=== PATIENT | male | born 1985 ===

== ENCOUNTER 2019-07-05 17:58 | Emergency (ER) | payer BC, OTHER ==
--- NOTE | 2019-07-05 18:58 | UC ---
Cardiac HPI - HPI Summary HPI Summary: The patient is a 34-year-old male with a 2 week history of substernal chest pressure. It can last 2 up to a few hours. He has been feeling anxious and recently lost his job. Today he felt like he may pass out. He has been on apparently O diet and has lost 10-15 pounds in the past month. He states he has not eaten much today. He denies any abdominal pain. He denies any nausea vomiting or diarrhea. He denies any diaphoresis. - History of Current Complaint Chief Complaint: UCChestPain Stated Complaint: CHEST PAIN Time Seen by Provider: 07/05/19 18:50 Hx Obtained From: Patient Onset/Duration: Gradual Onset, Lasting Weeks Timing: Intermittent Episodes Lasting: - hours Initial Severity: Mild Current Severity: Mild Pain Intensity: 2 Chest Pain Location: Mid Sternal Character: Pressure/Squeezing Aggravating Factor(s): Nothing Alleviating Factor(s): Spontaneous Resolution Associated Signs & Symptoms: Positive: Chest Pain, Anxiety, Recent Stress, Palpitations. Negative: Vision Changes, Headaches, Numbness, Tingling, Weakness , Dizziness, SOB, Swelling, Syncope, Fever, Diaphoresis, Nausea/Vomiting, Cough , Hemoptysis, Back Pain - Allergy/Home Medications Allergies/Adverse Reactions: Allergies Allergy/AdvReac Type Severity Reaction Status Date / Time No Known Allergies Allergy Verified 07/05/19 18:10 PMH/Surg Hx/FS Hx/Imm Hx Previously Healthy: Yes - Surgical History Surgery Procedure, Year, and Place: t&A - Family History Known Family History: Positive: Hypertension, Non-Contributory - Social History Alcohol Use: Weekly Substance Use Type: None Smoking Status (MU): Never Smoked Tobacco Review of Systems All Other Systems Reviewed And Are Negative: Yes Constitutional: Positive: Negative Skin: Positive: Negative Eyes: Positive: Negative ENT: Positive: Negative Respiratory: Positive: Negative Cardiovascular: Positive: Palpitations, Chest Pain Gastrointestinal: Positive: Negative Genitourinary: Positive: Negative Motor: Positive: Negative Neurovascular: Positive: Negative Musculoskeletal: Positive: Negative Neurological: Positive: Negative Psychological: Positive: Negative Physical Exam Triage Information Reviewed: Yes Appearance: Well-Appearing, No Pain Distress, Well-Nourished Vital Signs: Initial Vital Signs Temp 98.9 F 07/05/19 18:12 Pulse 84 07/05/19 18:12 Resp 20 11/04/19 18:12 BP 154/83 07/05/19 18:12 Pulse Ox 100 07/05/19 18:12 Vital Signs Reviewed: Yes Eyes: Positive: Conjunctiva Clear ENT: Positive: Hearing grossly normal, TMs normal, Uvula midline. Negative: Nasal congestion, Nasal drainage, Tonsillar swelling, Tonsillar exudate, Trismus , Muffled voice, Dental tenderness, Sinus tenderness Dental Exam: Normal Neck: Positive: Supple, Nontender, No Lymphadenopathy Respiratory: Positive: Lungs clear, Normal breath sounds, No respiratory distress Cardiovascular: Positive: RRR, No Murmur Abdomen Description: Positive: Nontender, No Organomegaly, Soft. Negative: CVA Tenderness (R), CVA Tenderness (L) Bowel Sounds: Positive: Present Musculoskeletal: Positive: ROM Intact, No Edema Neurological: Positive: Alert Psychological Exam: Normal Skin Exam: Normal - Clinical Impression Provider Diagnosis: Chest pain, Near syncope Discharge ED - Sign-Out/Discharge Documenting (check all that apply): Patient Departure All imaging exams completed and their final reports reviewed: No Studies - Discharge Plan Condition: Stable Disposition: HOME Prescriptions: Omeprazole 20 mg PO DAILY #14 tab.rap. Patient Education Materials: Near Syncope (ED), Noncardiac Chest Pain (ED) Referrals: [facility] [Outside] - As Soon As Possible Additional Instructions: Your EKG was unremarkable I am unsure of the cause of your symptoms fluids take it easy tonight blood work is pending BP is elevated blood work is pending - Billing Disposition and Condition Condition: STABLE Disposition: Home
[2019-07-06 11:33] LABS: ABS Eosinophils 0.2 10^3/ul (0-0.6); ABS Lymphocytes 1.4 10^3/ul (1.0-4.8); ABS Monocytes 0.5 10^3/ul (0-0.8); ABS Neutrophils 5.7 10^3/ul (1.5-7.7); Eosinophil % 2.1 %; Hematocrit 48 % (42-52); Hemoglobin 16.8 g/dL (14.0-18.0); Lymphocyte % 18.3 %; Mean Corpuscular HGB Conc 35 g/dL (31-36); Mean Corpuscular Hemoglobin 32 pg (27-31); Mean Corpuscular Volume 92 fL (80-94); Nucleated Red Blood Cells % 0.1; Platelet Count 161 10^3/uL (150-450); Red Blood Count 5.26 10^6 /uL (4.18-5.48); Red Cell Distribution Width 13 % (10-15); White Blood Count 7.9 10^3/uL (3.5-10.8)
[2019-07-06 11:43] LABS: Albumin 4.8 g/dL (3.2-5.2); Calcium 10.4 mg/dL (8.6-10.3); Potassium 3.7 mmol/L (3.5-5.0)
[2019-07-06 11:49] LABS: Albumin/Globulin Ratio 2.2 (1-3); BUN/Creatinine Ratio 17.3 (8-20); EGFR African American 132.8 (>60); EGFR Non-African American 109.7 (>60); Globulin 2.2 g/dL (2-4)
[2019-07-06 12:07] LABS: TSH (Thyroid Stimulating Horm) 1.72 mcIU/mL (0.34-5.60)
--- NOTE | 2019-07-06 21:10 | UC ---
- Progress Note Progress Note: blood work unremarkable. FOllow up with primary for further work up or call [facility] to be connected with primary. nurse to call. -Lisa Thomas PAC Course/Dx - Diagnoses Provider Diagnoses: Chest pain, Near syncope Discharge ED - Sign-Out/Discharge Documenting (check all that apply): Patient Departure All imaging exams completed and their final reports reviewed: No Studies - Discharge Plan Condition: Stable Disposition: HOME Prescriptions: Omeprazole 20 mg PO DAILY #14 tab.rap. Patient Education Materials: Near Syncope (ED), Noncardiac Chest Pain (ED) [facility]errals: [facility] [Outside] - As Soon As Possible Additional Instructions: Your EKG was unremarkable I am unsure of the cause of your symptoms fluids take it easy tonight blood work is pending BP is elevated blood work is pending - Billing Disposition and Condition Condition: STABLE Disposition: Home
== END 2019-07-05 19:54 | disposition home or self-care (01) ==
LOC: UCEAST 17:58
DX: R07.2 Precordial pain (principal); R00.2 Palpitations; R55 Syncope and collapse
CPT/HCPCS: 36415; 80053; 84443; 85025; 93005; 99202; G0463